=== PATIENT | female | born 1930 | race Caucasian/White ===

== ENCOUNTER 2020-10-08 07:05 | Observation (INO) | payer MEDICARE, BC ==
[~2020-10-08] VITALS: Ht 167.6 cm; Wt 87.3 kg
[~2020-10-08 07:05] MED LIST: METOPROLOL SUCC25 MG PO; VITAMIN D350 MC3 PO
--- NOTE | 2020-10-08 11:28 | NUR ---
10/08/20 1128 Josy Levy 1124 PATIENT ARRIVES TO PACU UNRESPONSIVE TO PAIN. ORAL AIRWAY IN PLACE. MASK AT 6LITERS.
--- NOTE | 2020-10-08 12:00 | NUR ---
PT ARRIVED FROM PACU. REPORT RECEIVED FROM ALEXANDREA MATHUR. PT TRANSFERES SELF TO BED, 1 PERSON STAND BY ASSIST. PT DENIES PAIN AND NAUSEA. PTS O2 SATRUATIONS NOTED TO BE 89%. PT PLACED ON 2L O2 BY DE, OXYGEN SATURATIONS CLIMB TO 95% AND MAINTAIN WITH SLEEPING. OTHER VITALS SIGNS STABLE. SCD'S IN PLACE. PT PLACED ON CONTINIOUS PULSE OX. IV FLUSHES WELL, NO REDNESS, SWELLING, OR PAIN NOTED. IV FLUIDS STARTED PER MD ORDER. ASSESSMENT DONE: NORMAL STRENGTH NOTED. PT DROWSY BUT ORIENTED TO ALL. PT REPORTS "A HORSE VOICE." EDUCATION DONE WITH PT REGADING ET TUBE PLACEMENT IN OR AND EXPECTED RECOVERY TIME. PT VERBALIZES UNDERSTANDING. DRESSING TO RIGHT BREAST C/D/I AT THIS TIME WITH NO DRAINGE NOTED. 30ML RED DRAINAGE NOTED IN MARLON DRAIN. MARLON DRAIN STRIPPED PER MD ORDER. MARLON INCERTION SITE, WNL, NO DRAINAGE NOTED. KAREEN, DOOR LINER HELPER, STATES DRAIN WAS EMPTY WHEN PT LEFT PACU. WILL CONTINUE TO MONITOR. PT REPORTS SHE RECEIVED HELP FROM HER GRANDDAUGHTER "ROSAS" AT HOME FOR GETTING GROCERIES BUT IS OTHERWISE INDEPENDANT AT HOME. PT ABLE TO DRINK WATER WITH NO NASUEA. DECLINES FOOD AT THIS TIME. NO ADDITIONAL REQUESTS OR COMPLAINTS AT THIS TIME. CALL LIGHT WITHIN REACH. BED RAILS UP.
--- NOTE | 2020-10-08 12:09 | EKG ---
[facility] [address] [facility] [place] [address] Signed Sinus bradycardia Left ventricular hypertrophy with repolarization abnormality Abnormal ECG No previous ECGs available Confirmed by CASIE GARZA MD ([id number]) on 10/08/2020 12:09:43 PM Electronically Signed By: CASIE GARZA MD 10/08/20 1209 PATIENT NAME: THELMA BUTTS Electrocardiogram DATE OF : [birth year] PHYSICIAN: CASIE GARZA MD REPORT #: [id number] REPORT IS CONFIDENTIAL AND NOT TO BE RELEASED WITHOUT AUTHORIZATION
--- NOTE | 2020-10-08 12:39 | NUR ---
DORA ORNELAS CONTACTED PER DR VALDERRAMA'S ORDER TO FIT PATIENT FOR CAMIZOLE AND EDUCATE PT. DORA STATES SHE WILL BE UP SHORTLY TO VISIT WITH PT.
--- NOTE | 2020-10-08 12:46 | NUR ---
THIS RN TO ROOM FOR VITALS AND ASSESSMENT. PT RESTING IN BED WITH EYES CLOSED. PT AWAKENS TO MOVEMENT IN ROOM. VITAL SIGNS STABLE. PT WEANED TO 1L O2 BY NC AND IS MAINTING OXYGEN SATURATION ABOVE 92% WHILE RESTING. ASSESSMENT DONE: DRESSING TO RIGHT BREAST REMAINS C/D/I WITH NO DRAINAGE OR SHADOWING NOTED. MARLON SAMIRA SHOWS SMALL AMOUNT OF RED FLUID, NOT EMPTIED AT THIS TIME. DRAIN STRIPPED PER MD ORDER. EDUCATION DONE WITH PT REGARDING MARLON DRAIN AND HOW IT IS EMPTIED AND STRIPPED. PT VERBLAIZES UNDERSTANDING. WILL CONTINUE TO REENFORCE EDUCATION. DORA, BREAST CARE/HEALTH, TO BEDSIDE TO MEET WITH PT. PT TALKING TO DORA. NO ADDITIONAL REQUESTS OR COMPLAINTS. PTS GRANDDAUGHTER BROOK LEAVING FOR THE DAY. CALL LIGHT WITHIN REACH. BED RAILS UP. BED ALARM ON.
--- NOTE | 2020-10-08 13:55 | NUR ---
VITALS AND ASSESSMENT DUE. THIS RN TO BEDSIDE. PT STILL TALKING WITH DORA FROM BREAST CARE/HEALTH. PT HAS CAMISOL IN PLACE OVER SURGICAL SITE. VITAL SIGNS STABLE. PT WEANED TO ROOM AIR, PT MAINTAINS FOR A SHORT TIME AND THEN DROPS TO 88%. PT PLACED BACK ON 1 L O2 BY LA. ASSESSMENT DONE: PT CONTINUES TO REPORTS "SCRATCHY THROAT." FURTHER EDUCATION DONE/REINFORCED. DRESSING REMAINS C/D/I WITH NO DRAINAGE OR SHADOWING NOTED. MARLON DRAIN CONTINUES DRAINING RED FLUID, ADDITONAL 45ML REMOVED FROM MARLON BULB, WILL CONTINUE TO MONITOR. PT CONTINUES TO DENY PAIN AND NAUSEA. SCHEDULED TYLENOL GIVEN PER MD ORDER. EDUCATION DONE WITH PT REGARDING EXPECTED LEVEL OF PAIN. PT VERBALIZES UNDERSTANDING AND STATES SHE WILL CALL IF PAIN INCREASES. PT UP WITH ONE PERSON ASSIST TO RESTROOM. PT HAS VOIDED, INCONTINANT, INTO DEPENDS. KALINA CARE DONE. DEPENDS CHANGED. PTS DRESSED IN PAJAMAS FROM HOME PER PT REQUEST. MEDICATIONS GIVEN (SEE MAR). CRACKERS PROVIDED PER PT REQUEST. PT REPORTS SHE IS "STARTING TO FEEL HUNGERY." PT BACK TO BED WITH 1 PERSON ASSIST. PT REPORTS FEELING STEADY ON FEET "BUT A LITTLE WEAK." PT RESTING IN BED. BED RAILS UP. CALL LIGHT WITHIN REACH. BED ALARM ON.
--- NOTE | 2020-10-08 14:33 | NUR ---
SPECIAL DELIVERY CARRIERALEXANDREA AVERY REQUESTED I LET PT REST AT THIS TIME. WILL FOLLOW NEEDED
--- NOTE | 2020-10-08 15:13 | NUR ---
ASSESSMENT AND VITALS DUE. PT RESTING IN BED ON BACK WITH HEAD OF BED ELEVATED TO 30 DEGREES. PT DENIES PAIN AND NAUSEA AND HAS FINISHED EATING TOAST AND A BOWL OF SOUP. ROOM AIR TRIAL ATTEMPTED. PT REMAINS AT 90-92% ON ROOM AIR. PT REMAINS ON 1L AT THIS TIME FOR EXTRA SUPPORT. PT TURNS TO 95% ON 1L O2 BY NC. ASSESSMENT DONE: SCD'S IN PLACE. LUNG SOUNDS CLEAR. DRESSING TO RIGHT BREAST NOW 1.5CM CIRCUMFERENCE SHADOWING NOTED ON MEDIAL END OF DRESSING. 45 ML RED DRAINAGE NOTED FROM MARLON DRAIN. CHARGE NURSE, BENNIE, UPDATED ON DRAIN CONDITION, WILL CONTINUE TO MONITOR. PT CONTINUES WEARNING TOP PROVIDED BY DORA FROM [employer]. DINNER AND BREAKFAST ORDER PLACED FOR PT. PT CONTINUES RESTING IN BED WITH HEAD OF BED ELEVATED TO 30 DEGREES. NO ADDIITONAL REQUESTS OR COMPLAINTS. CALL LIGHT BRONSON REACH. BED ALARM ON.
[2020-10-08] MEDS ORDERED: I-CAPS WITH LU1 EACH PO (15:18)
--- NOTE | 2020-10-08 15:18 | NUR ---
MED REC COMPLETE
--- NOTE | 2020-10-08 16:53 | NUR ---
THIS RN TO ROOM TO CHECK ON PT. PT DENIES NASUEA AND REPORTS "JUST A LITTLE SOMETHING" POINTING TO SURGICAL SITE. PT DOES NOT RATE PAIN AT THIS TIME STATING "IT JUST LIKE HAVING SOMETHING STICKING IN ME THAT SHOULDN'T BE THERE." PT DENIES NEED FOR PAIN MEDICATION AT THIS TIME. MARLON DRAIN NOTED TO HAVE SMALL AMOUNT OF RED DRAINAGE. DRESSING TO RIGHT BREAST REMAINS UNCHANGED WITH SMALL AMOUNT OF RED SHADOWING NOTED NEAR MEDIAL END OF DRESSING. PT REMAINS ON 2L O2 BY IL WITH OXYGEN SATURATION OF 93%. PT ANTICIPATING DINNER. NO ADDITIONAL REQUESTS OR COMPLAINTS AT THIS TIME. CALL LIGHT WITHIN REACH. BED ALARM ON.
--- NOTE | 2020-10-08 17:44 | NUR ---
PT POST OP DAY ZERO FOR RIGHT MASTECTOMY. PT UP TO RESTROOM WITH 1 PERSON ASSIST, INCONTINANT VOIDS NOTED PER PT BASELINE. PT TOLERATING REGULAR DIET WITH GOOD APPITITE AND NO NAUSEA. PT REPORTING NO PAIN SO FAR THIS SHIFT. PT EDUCATION DONE REGARDING PAIN EXPECTATIONS AND AVALIABLE MEDICATIONS. SUTRES ADN ACTICOAT DRESSING INTACT OVER RIGHT BREAST SURGICAL SITE WITH SMALL AMOUNT OF RED SHADOWING NOTED TO MEDIAL END OF DRESSING. MARLON DRAIN HAD 120ML RED OUTPU SO FAR THIS SHIFT. PT REMAINS ON 1L O2 BY NC WITH CONTINIOUS PULSE OX IN PLACE, MAINTAINING O2 ABOVE 92% WITH 1L O2 BY NC. SCD'S IN PLACE. PT USES CALL LIGHT APPROPRIALTY.
--- NOTE | 2020-10-08 18:29 | NUR ---
THIS RN TO ROOM TO CHECK ON PT. PT DENIES PAIN AND NAUSEA. PT REPORTS "DINNER WAS REALLY GOOD." PT REMAINS ON 1L O2 BY NC WITH OXYGEN SATURATION AT 94%. MARLON DRAIN EMPTIED OF 10ML RED DRAINAGE. DRAIN STRIPPED PER MD ORDER. PT DENIES ADDITIONAL REQUESTS OR COMPLAINTS. CALL LIGHT WITHIN REACH. BED RAILS UP.
--- NOTE | 2020-10-08 19:16 | NUR ---
BEDSIDE REPORT RECEIVED FROM ALEXANDREA CANTU. SBA TO RESTROOM FOR VOID. DEVIKA KWON NOW IN ROOM ASSISTING pt. 1L OXYGEN BY NC IN PLACE, SPO2 91-94%. pt DENIES PAIN.
--- NOTE | 2020-10-08 20:35 | NUR ---
CALL LIGHT ANSWERED. LIGHTS OFF IN ROOM REQUESTED. pt REQUESTING TO NAP BEFORE PM MEDICATIONS.
--- NOTE | 2020-10-08 22:00 | NUR ---
pt SLEEPING, AWAKENS TO VOICE. VSS. pt DENIES TOILETING NEEDS. EDUCATION PROVIDED ON MARLON DRAIN EMPTYING, pt ASKING QUESTIONS, DEMONSTRATING USE CLOSING BULB AFTER RN DEMONSTRATES MILKING TUBING, EMPTYING BULB. pt STATES "I THINK MY GRANDDAUGHTER COULD HELP ME DO THIS". 40 MLS RED DRAINAGE EMPTIED AT THIS TIME. SMALL QUARTER SIZE CLOT NOTED ON DRESSING. pt DENIES PAIN. SCHEDULED MEDICATIONS ADMINISTERED. ORAL CARE COMPLETE. pt REQUESTING POST MASTECTOMY BRA REMOVED, REMOVED AT THIS TIME REQUESTED. MARLON DRAIN SECURED TO GOWN WITH SAFETY PIN. ATTEMPT TO TITRATE O2 TO RA, SPO2 DROPS TO 89%, 1L OXYGEN BY NC REMAINS IN PLACE. CALL LIGHT IN REACH. BED ALARM ON.
--- NOTE | 2020-10-09 00:44 | NUR ---
CHECKED ON pt. RESTING IN BED WITH EYES CLOSED. SPO2 94% ON 1L OXYGEN BY NC. BED ALARM ON.
--- NOTE | 2020-10-09 02:10 | NUR ---
PT CALLED, STATED SHE LOST "SOMETHING OUT OF MY NOSE". FOUND O2 TUBING ON THE FLOOR. SHE STATED THAT SHE WAS TURNING OVER IN BED, REALIZED IT WAS MISSING. SHE WANTED TO KNOW WHAT THAT "NOISE IS". LOUDER NOISE EXPLAINED TO HER WAS THE FAN. SHE SAID SHE WONDERED WHY THE TRAIN HAD STOPPED, SAID IT SOUNDED LIKE A TRAIN. OFFERED EAR PLUGS, WHICH SHE HAD, BUT SHE SAID THEY DON'T WORK. SCD'S ADJUSTED.
--- NOTE | 2020-10-09 02:22 | NUR ---
CALL LIGHT ANSWERED BY ALEXANDREA MARQUEZ, pt STATES "I LOST SOMETHING OUT OF MY NOSE". ALERT AND ORIENTED. SPO2 WNL ON 1L OXYGEN BY NC. DRAINAGE ON DRESSING UNCHANGED FROM START OF SHIFT. pt DENIES ANY PAIN STATES THE ONLY THING THAT HURTS WITH MOVEMENT IS WHERE THE MARLON IS INSERTED. MARLON EMPTIED 40 MLS SANGUINOUS FLUID. pt DENIES NEED FOR PRN MEDICATION. DENIES NEED TO VOID. IVF INFUSING ORDERED WNL. HOT APPLE CIDER PROVIDED REQUESTED. CALL LIGHT IN REACH. BED ALARM ON.
--- NOTE | 2020-10-09 05:37 | NUR ---
CALL LIGHT ANSWERED. SBA TO RESTROOM. UNMEASURED VOID IN TOILET AND LARGE INCONTINENCE IN ATTENDS, KALINA PAD. LINENS CHANGED ON BED. pt INDEPENDENT TO CLEAN WITH WIPES IN RESTROOM. BACK IN BED. VSS. TITRATED TO RA, SPO2 96%. ICE WATER AND HOT APPLE CIDER PROVIDED. MARLON DRAIN EMPTIED 25 MLS SANGUINOUS FLUID. pt REFUSING TO EMPTY DRAIN AT THIS TIME, WATCHES RN. STATES "I WILL HAVE MY GRANDDAUGHTER DO IT". CALL LIGHT IN REACH.
--- NOTE | 2020-10-09 05:40 | NUR ---
pt RESTED WELL THIS SHIFT. MINIMAL PAIN, ONLY C/O "FEELING LIKE SOMETHING IS THERE LIKE A WIRE IN BRA AT MARLON INSERTION SITE". PAIN WELL CONTROLLED WITH SCHEDULED TYLENOL. TITRATED TO RA, CPOX IN PLACE. DRAINAGE ON DRESSING UNCHANGED THROUGHOUT SHIFT, SMALL SANGUINOUS SPOT ON DRESSING. MARLON DRAIN WITH 105 MLS SANGUINOUS FLUID FOR SHIFT. IVF INFUSING WNL THROUGHOUT SHIFT. TOLERATING REGULAR DIET. SBA.
--- NOTE | 2020-10-09 06:13 | NUR ---
REVISING CLERK IS DONE DRAWING BLOOD ON PT. RESTARTED IV PUMP. PT DENIES NEEDS AT THIS TIME. CALL LIGHT IS CLOSE.
--- NOTE | 2020-10-09 07:15 | NUR ---
REPORT RECEIVED FROM ALEXANDREA GREEN. PT RESTING IN BED ON BACK. PT REPORTS "NO PAIN AT ALL REALLY." DESCRIBING ONLY A DISCOMFORT "LIKE I'M WEARING A BRA WITH METAL IN IT AND ITS POKING ME." PT DENIES NEED FOR PAIN MEDICATION AT THIS TIME. NO ADDITIONAL REQUESTS OR COMPLAINTS. CALL EILEEN NAVARRO.
--- NOTE | 2020-10-09 09:18 | NUR ---
MORNING ASSESSMENT AND MEDICATION DUE. PT RESTING IN BED TALKING WITH ARIEL NEFF RN. PT DENIES PAIN AND NAUSEA STATING HER ONLY COMPLAINT IS "IT FEELS LIKE I'M WEARING A METAL BRA WHERE THAT DRAIN IS." PT STATES 0/10 WHEN ASKED TO RATE HER DISCOMFORT. PT DENIES NEED FOR PAIN MEDICATION. IV, WNL, NO REDNESS, SWELLING, OR PAIN NOTED. IV FLUIDS INFUSING. PT NOTED TO BE OFF OF CONTINIOUS PULSE OX. CONTINIOUS PULSE OX REPLACED PER POST OP PROTOCOL. O2 NOTED TO BE 92% ON ROOM AIR. LUNG SOUNDS CLEAR. PT REPORTS HER LEGS FEEL SWOLLEN, MINOR GENERALIZED EDMA NOTED. PT EDUCATION DONE REGARDIN POST OP FLUID BALANCE. PT VERBALZIES UNDERSTANDING. PT UP TO CHAIR WITH STAND BY ASSIST. DEPENDS DRY. PT DECLINES OXYBUTYN MEDICAITON STATING SHE IS WORRIED ABOUT GETTING DEMENTIA. EDUCATION DONE, PT CONTINUES TO DECLINE. SUGICAL DRESSING REMAINS INTACT. 2CM BY 2CM RED SHADOWING NOTED AT MEDIAL END OF DRESSING. 30ML SERIOUSANGUINOUS DRAINAGE EMPITED IN MARLON DRAIN BY PT WITH ASSISTANCE FROM THIS RN. PT RELUCTANT TO EMPTY MARLON DRAIN ALONE AND STATES HER FAMILY WILL BE HELPING HER. PT EDUCATION DONE. PT DEMONSTRATES CORRECT TECHNIQUE WITH ASSISTANCE FROM THIS RN. PT REPORTS SHE DID NOT LIKE HER FIRST BREAKFAST. NEW BREAKFAST ORDER ARRIVED. PT EATING BREAKFAST UP TO CHAIR. DENIES ADDIITONAL REQUESTS OR COMPLAINTS. CALL EILEEN NAVARRO.
--- NOTE | 2020-10-09 09:30 | NUR ---
Met with patient this morning, the patient is very happy with her care on the medical floor, states that the nurses are very attentative to her, stating that "they are wonderful". Patient desires to return home and has no concerns with returning home, states her granddaughter is close by, and very helpful.
--- NOTE | 2020-10-09 10:15 | NUR ---
Pt lives in [place] in 2 story home with rails. No steps into the home. Niece lives around the corner and checks on her daily. Son calls daily. Niece will assist as needed. Pt plans on going home with assist from nephew and niece. Pt refused camisole from [facility] for support following surgery.
--- NOTE | 2020-10-09 10:34 | NUR ---
THIS RN TO ROOM TO CHECK ON PT. PT REAMINS UP TO CHAIR TALKING WITH ARIEL NEFF. NEW IV FLUID BAG HUNG. VITAL SIGNS STABLE. PT FINISHED WITH BREAKFAST AND REPORTS HER SECOND BREAKFAST WAS "VERY GOOD." NO ADDTIONAL REQUESTS OR COMPLAINTS AT THIS TIME. CALL LIGHT WITHIN REACH.
--- NOTE | 2020-10-09 10:40 | NUR ---
PATIENT AWAKE IN CHAIR, VITALS AND I&OS CHARTED. CALL LIGHT IN REACH, NO OTHER NEEDS AT THIS TIME
--- NOTE | 2020-10-09 11:38 | NUR ---
In room responding to CPOX alarm. Pts CPOX was alarming and when I entered the room her o2sat read 87%. Within moments the CPOX read 94% and maintained >94% for two mins. Pt alert, oriented, and holding full conversation without difficulty. Pt in chair, table and call light within reach, granddaughter at chair side.
--- NOTE | 2020-10-09 11:52 | NUR ---
NOON ASSESSMENT DUE. PT UP TO CHAIR TALKING WITH GRAND DAUGHTER ROSAS. PT DENIES PAIN AND NAUSEA. O2 SATURATION AT 98% ON ROOM AIR. HEART RATE OF 62. PT UP TO RESTROOM WITH STAND BY ASSIST. INCONTINANT EPISODE NOTED. KALINA CARE DONE. FRESH DEPENDS IN PLACE. MARLON DRAIN EMPTIED BY ROSAS, PTS GRANDDAUGHTER, WHO DEMONSTRATES CORRECT TECHNIQUE. 20ML SERIOUSANGUINOUS FLUID NOTED FROM MARLON DRAIN. DRESSING TO RIGHT BREAST REMAINS INTACT WITH NO NEW SHADOWING NOTED, 2CM CIRCUMFRENTIAL SHADOWING AT MEDIAL END OF DRESSING REMAINS. PT EDUCAITON DONE REGARDING DRAIN AND WOUND HOME CARE AND SHOWERING. PT AND GRANDDAUGHTER VERBALIZE UNDERSTANDING. PT CONTINUES TO REPORT SWELLING IN LOWER LEGS, MINOR GENERALIZED SWELLING NOTED. PT REPORTS SHE IS READY TO GO HOME AND WONDERS WHEN SHE WILL HAVE DISCHARGE INSTRUCTIONS. PT UPDATED ON PLAN OF CARE. NO ADDITIONAL REQUESTS OR COMPLAINTS. LUNCH ORDER PLACED. PT VISITING WITH GRANDDAUGHTER. CALL LIGHT WITHIN REACH.
[2020-10-09] MEDS ORDERED: ACETAMINOPHEN500 MG PO (13:38)
--- NOTE | 2020-10-09 13:49 | NUR ---
PATIENT AWAKE IN CHAIR, FAMILY IN ROOM. VITALS AND I&OS CHARTED, NO OTHER NEEDS AT THIS TIME
--- NOTE | 2020-10-09 14:04 | NUR ---
THIS RN TO ROOM TO CHECK ON PT. MEDICATION DUE. PT DENIES PAIN AND NAUSEA. SCHEDULED MEDICATION GIVEN. IV FLUIDS STOPPED. IV SALINE LOCKED SO PT CAN GET DRESSED. PULSE OX CONTINUES TO SHOW O2 SATURATION OF 92-98 % ON ROOM AIR. HOSPICE MASSAGE THERAPIST TO BEDSIDE TO HELP PT GET DRESSED. PT DENIES ADDITIONAL REQUESTS OR COMPLAINTS. CALL LIGHT WITHIN REACH.
--- NOTE | 2020-10-09 14:50 | NUR ---
DISCHARGE PAPERWORK COMPLETE. PT READY FOR DISCHARGE. PT DRESSED WITH 1 PERSON ASSIST. KALINA CARE DONE. DEPENDS CHANGED. PHARMACIST TO BEDSIDE FOR MEDICAITON REVEIWED. PT AND GRANDDAUGHTER VERBALIZE UNDERSTANDING OF MEDICAITONS AND STATE THEIR QUESTIONS HAVE BEEN ANSWERED. IV DC'D BY ALEXANDREA SAM. VITAL SIGNS STABLE. DISCHARGE INSTRUCTIONS REVEIWED WITH PT AND GRANDDAUGHTER. PT AND GRANDDAUGHTER VERBALIZE UNDERSTANDING OF INSTRUCTIONS, DRAIN CARE, FOLLOW UP, MEDICATIONS AND STATE THEIR QUESTIONS HAVE BEEN ANSWERED. PT TANSFERES SELF TO WHEELCHAIR. PT WHEELED FROM MED/SURG WITH BELONGINGS TO MEET ROSAS (GRANDDAUGHTER) AT FRONT OF HOSPITAL.
--- NOTE | 2020-10-13 15:46 | OR ---
[facility] [address], [place] [address] Signed DATE OF OPERATION: 10/08/2020 SURGEON: Jen Valderrama MD PREOPERATIVE DIAGNOSES: 1. 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 2. Probable similar lesion at 1 o'clock separate quadrant, right breast. POSTOPERATIVE DIAGNOSES: 1. 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 2. Probable similar lesion at 1 o'clock separate quadrant, right breast. 3. Frozen pathology of sentinel lymph node negative for metastatic disease, right low axilla. PROCEDURES: 1. Injection of methylene blue dye for sentinel lymph node identification. 2. Right total mastectomy with low axillary lymph node dissection. 3. Deep sentinel lymph node biopsy .. ANESTHESIA: General LMA, Vini Brigitte, X RAY TECH DRAINS: 7 mm Juan. ESTIMATED BLOOD LOSS: Less than 50 mL. INDICATIONS: This 89-year-old white woman is a patient of Dr. Umair Childs. She was noted to have a palpable mass at the 10 o'clock position in relation to her right nipple. Imaging studies including mammogram and ultrasound showed BI-RADS category 5 lesion of the right breast and the lesion that was smaller quite a bit more medially in the right breast at least 10 cm from the areolar margin. She underwent image-guided biopsy by ar, which showed infiltrating ductal carcinoma of the lesion near the nipple. The lesion more medially was not biopsied. The patient at the outset has stated her intention for her breast cancer treatment to include mastectomy rather than breast conservation therapy. Considering the high probability that the medial lesion is malignant as well and would be considered a Electronically Signed By: JEN VALDERRAMA MD 10/13/20 1546 PATIENT NAME: THELMA BUTTS OPERATIVE REPORT DATE OF : [birth year] REPORT #: [id number] PHYSICIAN: JEN VALDERRAMA MD PCP: UMAIR CHILDS MD REPORT IS CONFIDENTIAL AND NOT TO BE RELEASED WITHOUT AUTHORIZATION [facility] [address], [place] [address] Signed multi-centric lesion (separate quadrant), mastectomy is a reasonable choice for treatment. The risks of bleeding, infection, cosmetic deformity, need for additional treatment, need for complete axillary dissection should sentinel lymph node prove to be malignant was all reviewed with the patient and family, they understand and wished to proceed. FINDINGS: There was good uptake to a low axillary lymph node, which once excised on frozen pathology was found to show no evidence of metastatic disease. The breast was rather large and broad-based. Complete and total mastectomy was accomplished as well as excision of low axillary contents. Formal high axillary dissection (level 3) was not undertaken as the sentinel lymph node was found to be benign. The palpable lesion previously biopsied was well incorporated within the specimen and the more medial lesion was not particularly identified nor dissection taken through the breast specimen to identify it. That will await final pathology of course. There is no evidence of direct penetration in the pectoralis fascia. No other findings of concern. DESCRIPTION OF PROCEDURE: The patient was brought to the operating room, given a general anesthetic by LMA technique. Preoperative antibiotic Ancef was given. Sequential compression device stockings used and heparin subcutaneously administered. A full 3 mL of methylene blue dye was injected in the subdermal and parenchymal space in the 10 o'clock position of the right breast. Arborization of lymphatics was noted. The breast was then prepared with a chlorhexidine solution and draped sterilely. An elliptical incision was made incorporating the nipple-areolar complex and superior and inferior flaps developed with sharp technique. The breast was dissected from a superior to inferior direction using minimal amounts of cautery, freeing it entirely from the pectoralis fascia. The remaining axillary tail of Valadez and the contiguous axillary contents were carefully evaluated and dissected free. The upper axilla had no palpable adenopathy. The low axilla was with a hemostat device following a lymphatic from the injection site ultimately to a sentinel lymph node in the low to mid axilla. This was dissected free and sent as sentinel lymph node. She was subsequently found to have no evidence of metastatic disease. Excision of the breast included all the breasts, axillary tail of Valadez, and the lower portion of the axillary contents. A complete level three axillary dissection was not performed nor was it needed based on the pathologic findings. Through a separate stab incision, a 7 mm flat Juan drain was placed extending superiorly with the tip ultimately entering into the mid axilla. The wound was then closed with interrupted 2-0 Vicryl and a running subcuticular 3-0 Vicryl was used for the skin. Notably, irrigation of the wound and axilla was undertaken with sterile water for its tumor lytic effect and for assistance in hemostasis. Once the skin was closed, Steri-Strips were applied as was a silver sponge dressing. The drain was attached to the skin with a nylon suture and attached to bulb suction. Blood loss in aggregate was Electronically Signed By: JEN VALDERRAMA MD 10/13/20 1546 PATIENT NAME: THELMA BUTTS OPERATIVE REPORT DATE OF : [birth year] REPORT #: [id number] PHYSICIAN: JEN VALDERRAMA MD PCP: UMAIR CHILDS MD REPORT IS CONFIDENTIAL AND NOT TO BE RELEASED WITHOUT AUTHORIZATION [facility] [address] [place] [address] Signed less than 50 mL. She was ultimately extubated and transferred to the recovery room in good condition, having suffered no complications. Sponge, needle, and instrument counts reported as correct x3. Jen Valderrama MD /DEWAYNEL /[id number] cc: Umair Childs MD Copies: UMAIR CHILDS MD ~ Electronically Signed By: JEN VALDERRAMA MD 10/13/20 1546 PATIENT NAME: THELMA BUTTS OPERATIVE REPORT DATE OF : [birth year] REPORT #: [id number] PHYSICIAN: JEN VALDERRAMA MD PCP: UMAIR CHILDS MD REPORT IS CONFIDENTIAL AND NOT TO BE RELEASED WITHOUT AUTHORIZATION
--- NOTE | 2020-10-15 16:33 | PATH ---
[facility] [address] [facility] [place], [place] [address] Signed THIS IS AN ADDENDUM REPORT SPECIMEN(S): B RIGHT BREAST SPECIMEN(S): A SENTINEL LYMPH NODE OF RIGHT AXILLA SPECIMEN SOURCE: A. SENTINEL LYMPH NODE OF RIGHT AXILLA B. RIGHT BREAST CLINICAL HISTORY: Right breast cancer: Specimen Time to Fixation- 10/08/2020 10:52:00 AM FROZEN SECTION DIAGNOSIS: A. Morland lymph node right axilla: - No evidence of malignancy in dermatology sales representative section frozen. Nighat Day M.D. 10/08/2020 11:40 am B. The specimen, labeled "Severe, Thelma," and designated on the requisition "right breast stitch lane portion of axillary contents," is received in formalin and consists of 701 g oriented right breast (18.0 x 14.8 x 5.4 cm) with axillary tail (10.5 x 7.5 x 3.6 cm). The ellipse of skin (17.8 x 16.1 cm) is pink-vera and wrinkled with an eccentrically located everted. Adjacent to the nipple is a blue dye discoloration. The specimen is inked as follows: Superior-blue, inferior-green, and posterior-black. The specimen serially sectioned from medial to lateral revealing two separate masses. The first pink, ill-defined mass (1.7 x 1.7 x 1.4 cm) is centrally located within the superior half of the breast, 6.5 cm superior to the nipple, 2.3 cm from the anterior skin, 6.3 cm from the posterior soft tissue resection margin, 4.1 cm in the superior soft tissue resection margin, 7.9 cm from the inferior soft tissue resection margin, 4.8 cm from the medial soft tissue resection margin, and 6.3 cm from the lateral soft tissue resection margin. Approximately 1 cm superior to the first mass is a 0.5 x 0.4 x 0.3 cm firm nodule. The second pink-white, ill-defined mass (1.4 x 0.9 x 0.7 cm) is a 2.6 cm lateral to the first mass. The second mass is 2.4 cm from the anterior skin, 5.4 cm from the posterior soft tissue resection margin, 0.9 cm from the superior soft tissue resection margin, 10.3 cm from the inferior soft tissue resection margin, 9.5 cm from the medial soft tissue resection margin, and 4.3 cm from the lateral PATIENT NAME: THELMA BUTTS PATHOLOGY DATE OF : [birth year] REPORT #: [id number] PHYSICIAN: ERMA PATHOLOGY PCP: UMAIR PERSON MD REPORT IS CONFIDENTIAL AND NOT TO BE RELEASED WITHOUT AUTHORIZATION [address] [address] Signed soft tissue resection margin. Approximately 80% of the remaining specimen is a yellow-vera greasy adipose tissue and 20% is a delicate fibrous tissue. Upon palpation of the upper inner quadrant no mass lesions are grossly identified. Sectioning through the axillary tail reveals eight possible lymph nodes that measure up to 1.4 cm in greatest dimension. Eye Surgeon sections are submitted in 24 cassettes. Cassette summary: (B1) nipple and skin (B2) posterior soft tissue resection margin closest to first mass, perpendicular (B3) superior soft tissue resection margin closest to first mass, perpendicular (B4-B5) first mass to adjacent fibroadipose tissue (B6) fibroadipose tissue between first and second masses (B7-B8) second mass to superior soft tissue resection margin, perpendicular (B9) posterior soft tissue resection margin closest to second mass, perpendicular (B10) fibroadipose tissue upper inner quadrant (B11) fibroadipose tissue upper outer quadrant (B12) fibroadipose tissue lower outer quadrant (B13) fibroadipose tissue lower inner quadrant (B14) one possible lymph node, serially sectioned (B15) one possible lymph node, serially sectioned (B16) one possible lymph node, bisected (B17) two possible lymph nodes, submitted whole (B18) one possible lymph node, bisected (B19) one possible lymph node, serially sectioned (B20) one possible lymph node, submitted whole (B21) first mass to adjacent nodule (yellowing ink identifying nodule, not true margin) (B22-B24) fibroadipose tissue from upper inner quadrant (approximately 5 cm from mass #1 at the 1 o'clock position) (B25) Fibroadipose tissue abutting mass #1 (B26) Fibroadipose tissue between masses, between mass 2 and B6. FB (under the direct supervision of a pathologist) Additional tissue is submitted in cassettes B21-B26 per Dr. Day's request. The Gross Description was prepared using a voice recognition system. The report was reviewed for accuracy; however, sound-alike word errors, addition and/or deletions may occur. If there is any question about this report, please contact Client Services. PATIENT NAME: THELMA BUTTS PATHOLOGY DATE OF : [birth year] REPORT #: [id number] PHYSICIAN: INCYTE PATHOLOGY PCP: UMAIR PERSON MD REPORT IS CONFIDENTIAL AND NOT TO BE RELEASED WITHOUT AUTHORIZATION [facility] [address] [place], [place] [address] Signed FINAL PATHOLOGIC DIAGNOSIS: A. 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 - See comment. B. Breast and portion of axillary contents, right, total mastectomy: - Two foci of invasive ductal carcinoma with the following features: - Tumor sites: - Focus 1: Superior periareolar. - Focus 2: Upper outer quadrant, see Comment. - Tumor size: - Focus 1: 17 x 17 x 14 mm. - Focus 2: 9 mm in greatest dimension (measured microscopically). - Histologic type: - Focus 1: Invasive ductal carcinoma with micropapillary features. - Focus 2: Invasive ductal carcinoma. - Histologic grade ([place] histologic score): - Glandular (acinar)/tubular differentiation: Score 3. - Nuclear pleomorphism: Score 2. - Mitotic rate: Score 1. - Overall grade: Grade 2 (total score 6 of 9). - Tumor focality: Two foci of invasive carcinoma. 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 - Architectural patterns: Solid and cribriform. - Nuclear grade: Grade 2 (intermediate). - Necrosis: Present, central (expansive "comedo" necrosis). - Margins: - Invasive carcinoma margins: Uninvolved by invasive carcinoma: - Superior margin: 9 mm. - Inferior, posterior, medial, and lateral: Greater than 10 mm. - DCIS margins: Uninvolved by DCIS. - Superior, inferior, posterior, medial, and lateral: Greater than 10 mm. - Regional lymph nodes: Involved by tumor cells. - Number of lymph nodes with macrometastasis: 0 - Number of lymph nodes with micrometastasis: ----1 (see part A) - Number of lymph node with isolated tumor cells: 0 - Size of largest metastatic deposit: 1 mm. PATIENT NAME: THELMA BUTTS PATHOLOGY DATE OF : [birth year] REPORT #: [id number] PHYSICIAN: ERMA BEVERLY PCP: UMAIR PERSON MD REPORT IS CONFIDENTIAL AND NOT TO BE RELEASED WITHOUT AUTHORIZATION [facility] [address] [place], [place] [address] Signed - Extra natalie extension: Not identified. - Total number of lymph nodes examined: 9 - Number of sentinel nodes examined: 1. - Treatment effect in the breast: No known pre-surgical therapy. - Lymphovascular invasion: Not identified. - Dermal lymphovascular invasion: Not identified. - Microcalcifications: Present in DCIS and invasive carcinoma. - Additional findings: Biopsy site changes in carcinoma focus #1, fibrocystic changes. - Breast biomarker testing: Refer to previously performed studies ([id number]) on the periareolar breast mass, reported as estrogen receptor positive, progesterone receptor positive, HER2 negative by IHC, and Ki-67 proliferating index of 3%. - Pathologic stage classification (pTNM, AJCC 8th ed.): mpT1c (sn)pN1mi. - Eight lymph nodes with no evidence of malignancy (0/8). COMMENT: Regarding specimen A: Micrometastatic carcinoma is present in the sections of sentinel lymph node not submitted for frozen section. Regarding specimen B: Two foci of invasive carcinoma are present. Focus #1 is periareolar and has gross and histologic biopsy site changes. This focus #1 is compatible with the previously biopsied tumor which was tested for biomarkers. Of note, a biopsy marker clip was not placed post biopsy. Focus #2 grossly is located laterally to Focus #1. Per mammogram report 09/23/20, a second spiculated mass was reportedly present at approximately the 1:00 position, 5 cm from the periareolar spiculated mass. The 1:00 region, 5 cm from carcinoma focus #1 was extensively examined and sampled and no lesion or carcinoma was identified. The discordant gross location of carcinoma focus #2 could be due to orientational change of the breast status post surgical excision. Breast biomarker studies will be ordered on the second focus of carcinoma and reported in an addendum. As part of [employer] Quality Improvement Program, this case was reviewed by another member of our pathology staff. NAL:cml:C1NR MICROSCOPIC EXAMINATION: Histologic sections of all submitted blocks are examined by light microscopy. A pancytokeratin (AE1/AE3) immunohistochecmial stain (with appropriately staining PATIENT NAME: THELMA BUTTS PATHOLOGY DATE OF : [birth year] REPORT #: [id number] PHYSICIAN: ERMA PATHOLOGY PCP: UMAIR PERSON MD REPORT IS CONFIDENTIAL AND NOT TO BE RELEASED WITHOUT AUTHORIZATION [address] [address] Signed controls) performed on the previously frozen sentinel lymph node and is negative for carcinoma in the remaining tissue. An e-cadherin immunohistochemical stain (with appropriately staining controls) on a dermatology sales representative section of the carcinoma of focus #1 demonstrates strong membranous positivity, supporting ductal origin. These findings, together with the gross examination, support the pathologic diagnosis. GROSS DESCRIPTION: Two specimens are received in two containers, labeled "Severe, Thelma." A. The specimen, labeled "Severe, Thelma, sentinel lymph node right axilla," is received fresh for frozen section diagnosis and consists of 2.9 x 2.5 x 0.8 cm fat with a 1.6 x 1.4 x 1.0 cm lymph node (LN). The lymph node is trisected and one third submitted for frozen section resubmitted as received in cassette A1. The remainder of the lymph node is submitted in cassettes A2. Only adipose tissue remains within the container. PERFORMING LABORATORY: The [facility], [address] [place] [address] (CLIA# [id number]). The technical component was performed by [employer] [facility], [address] [place] [address] (Music Department Chair: Trinh Zeng MD; CLIA# [id number]). Professional interpretation was performed by [facility], [address] [place] [address] (CLIA# [id number]). ADDITIONAL NOTES: Immunohistochemical studies were performed on this case with the appropriate positive controls that react as expected. This test was developed and its performance characteristics determined by [employer] [facility]. It has not been cleared or approved by the U.S. Food and Drug Administration. The FDA has determined that such clearance or approval is not necessary. This test is used for clinical purposes. It should not be regarded as investigational or for research. [employer] [facility] is certified under the Clinical Laboratory Improvement Amendments of 1988 (CLIA) as qualified to perform high complexity clinical laboratory testing. This assay has not been validated for specimens that have been decalcified. PERFORMING LABORATORY: The technical component was performed by [facility], [address] [place] [address], PATIENT NAME: THELMA BUTTS PATHOLOGY DATE OF : [birth year] REPORT #: [id number] PHYSICIAN: ERMA BEVERLY PCP: UMAIR PERSON MD REPORT IS CONFIDENTIAL AND NOT TO BE RELEASED WITHOUT AUTHORIZATION [facility] [address] [place], [place] [address] [place] [address] (Music Department Chair: Trinh Zeng MD; CLIA# [id number]). Professional interpretation was performed by [facility], [address] [place] [address] (Music Department Chair: Trinh Zeng MD; CLIA# [id number]). REASON FOR ADDENDUM: To add results of additional testing. ADDENDUM PATHOLOGIC DIAGNOSIS: B. Right breast and portion of axillary contents, invasive ductal carcinoma: - Estrogen receptor: Positive. - Greater than 95% of tumor cells with strong average intensity. - Progesterone receptor: Positive. - 15% of tumor cells with weak to moderate average intensity. - Ki-67 proliferation index: 7.2%. DDF:shayy ADDENDUM MICROSCOPIC EXAMINATION: Block: B8. The cold ischemia time is unknown. The fixative is 10% neutral buffered formalin. The length of fixation is at least 6 hours and no longer than 72 hours, meeting ASCO/CAP guidelines. Estrogen receptor clone SP1 and progesterone receptor clone 1E2 by [employer] [place], [place]. Detection: HRP Polymer Detection on the Osborn Immunostainer with appropriate controls. Nuclear immunoreactivity of 1% or greater is considered positive by ASCO/CAP guidelines. Internal control cells for ER are positive. Internal control cells for [place] are positive. A Ki-67 proliferation index is performed, and 500 cells are counted. DDF:[facility] Diagnostician: Nighat Day MD Pathologist Diagnostician: Gilbert Proctor DO Pathologist Electronically Signed 10/15/2020 Copies: ~ PATIENT NAME: THELMA BUTTS PATHOLOGY DATE OF : [birth year] REPORT #: [id number] PHYSICIAN: ERMA PATHOLOGY PCP: UMAIR PERSON MD REPORT IS CONFIDENTIAL AND NOT TO BE RELEASED WITHOUT AUTHORIZATION
== END 2020-10-09 14:54 | disposition home or self-care (01) ==
LOC: DS 07:05 → MS 11:41 → DS 11:42 → MS 11:42
PROVIDERS: ADMIT Surgery; ATTEND Surgery
PROC: 0HBT0ZZ Excision of Right Breast, Open Approach (ICD-10-PCS; principal; 2020-10-08 09:00)
PROC: 07B50ZX Excision of Right Axillary Lymphatic, Open Approach, Diagnostic (ICD-10-PCS; 2020-10-08 09:00)
PROC: 3E0W3HZ Introduction of Radioactive Substance into Lymphatics, Percutaneous Approach (ICD-10-PCS; 2020-10-08 09:00)
DX: C50.911 Malignant neoplasm of unspecified site of right female breast (principal); H81.13 Benign paroxysmal vertigo, bilateral; I10 Essential (primary) hypertension
CPT/HCPCS: 00404; 36415; 85025; 88307; 88341; 88342; 88360; 93005; 93010; 96372; 96374; G0378; J0690; J1100; J1644; J1885; J2001; J2405; J2704; J3010; J7121; Q9968

== ENCOUNTER 2021-10-13 05:40 | Day surgery (SDC) | payer MEDICARE, BC ==
[~2021-10-13] VITALS: Ht 167.6 cm; Wt 87.0 kg
[~2021-10-13 05:40] MED LIST changes: +ACETAMINOPHEN500 MG PO; +CEPHALEXIN250 M1 PO; +I-CAPS WITH LU1 EACH PO
--- NOTE | 2021-10-14 17:52 | OR ---
[facility] [address] [facility] [place], [place] [address] Signed DATE OF OPERATION: 10/13/2021 SURGEON: Elinor Hart MD PREOPERATIVE DIAGNOSIS: 1.5 cm bladder lesion. POSTOPERATIVE DIAGNOSES: 1.5 cm bladder lesion, located on the superior aspect of the right lateral wall of the bladder, intermittent supraventricular tachycardia. NAMES OF PROCEDURES: 1. Diagnostic cystoscopy. 2. Transurethral resection of bladder tumor-small. 3. Intravesical instillation of mitomycin chemotherapy. ANESTHESIA: General. ESTIMATED BLOOD LOSS: Minimal. COMPLICATIONS: None. SPECIMENS: Two 3 mm pieces of tissue obtained from the area of suspicion sent to pathology for evaluation. DRAINS: A 20-Swedish two-way Collier catheter, capped and secured to the patient's abdomen. INDICATIONS FOR PROCEDURE: Ms. Fishman is an 89-year-old female who presents today to undergo cystoscopy with transurethral resection of a small bladder lesion noted on recent diagnostic cystoscopy. The patient noted to anesthesia that she had been experiencing dizziness and diaphoresis intermittently on occasion. When she was hooked up to the monitor, once she was asleep, she experienced a 10-second run of supraventricular tachycardia. I was notified and the decision was made to proceed with the procedure which she tolerated well without any complication. Electronically Signed By: ELINOR HART MD 10/14/21 1752 PATIENT NAME: THELMA FISHMAN OPERATIVE REPORT DATE OF : [birth year] REPORT #: [id number] PHYSICIAN: ELINOR HART MD PCP: SANTI KAUR MD REPORT IS CONFIDENTIAL AND NOT TO BE RELEASED WITHOUT AUTHORIZATION [facility] [address] [place], [place] [address] Signed OPERATIVE FINDINGS: 1. On cystoscopy, there is 1 cm plaque of papillary appearing lesions located on the superior aspect of the right lateral wall of the bladder. This lesion is well delineated. The entire lesion was resected using a bipolar resectoscope and will be sent to the lab for pathology. 2. After the lesion was resected, I re-evaluated the entire surface of the bladder and did not appreciate any other abnormal lesions within the bladder. 3. After the base of the lesion was cauterized appropriately, 20 mL of mitomycin (40 mg) was instilled into the patient's bladder via a 20-Swedish two way Collier catheter. The catheter was then capped and then secured to her abdomen. Total dwell time of mitomycin today will be 80 minutes. DESCRIPTION OF PROCEDURE: After informed consent was obtained, the patient was taken back to the operating room. She was transferred from the [facility] to the operating room table, where general anesthesia was induced. It was at this time that the 10 second run of supraventricular tachycardia was noted. After a discussion of the risks and benefits of procedure with Anesthesia, the decision was made to proceed with the TURBT. She was placed in dorsal lithotomy position and the genitalia prepped and draped in a standard sterile fashion. Using a 30-degree lens on a 22.5-Swedish introducer, rigid cystoscope was inserted through urethra and into her bladder under direct visualization. Panendoscopic views of the bladder were then obtained. Please see the above findings. I then turned my attention to the lesion in question. I removed the cystoscope and inserted a resectoscope with the help of a visual obturator. I then resected this 1 cm lesion from the superior right lateral wall of the bladder. It was resected in toto. The two small pieces of tissue associated with the lesion were sent to pathology for evaluation. I then cauterized the base of the biopsied area. After taking another quick look around the bladder, I drained the patient's bladder and removed the cystoscope. A 20-Swedish two-way Collier catheter was inserted into the patient's bladder and the balloon was filled with 10 mL of water. Then, 40 mg in 20 mL of mitomycin was then instilled into the patient's bladder via the catheter. The catheter was then capped and secured to her abdomen. The procedure was then terminated. She tolerated the procedure well without any complication. However, she did have a couple of small runs of SVT towards the end of procedure, however, she did remain widely stable otherwise. DISPOSITION: I discussed the details of today's procedure with the patient's daughter and answered all of her questions. I reassured the patient's daughter today that the lesion did not seem as abnormal as it did on initial cystoscopy, however, it still needed to be removed. We will contact the patient in approximately two weeks to discuss her pathology results. She will not have to go home with a Collier catheter today. However, Electronically Signed By: ELINOR HART MD 10/14/21 6023 PATIENT NAME: THELMA FISHMAN OPERATIVE REPORT DATE OF : [birth year] REPORT #: [id number] PHYSICIAN: ELINOR HART MD PCP: SANTI KAUR MD REPORT IS CONFIDENTIAL AND NOT TO BE RELEASED WITHOUT AUTHORIZATION [address] [address] Signed she will need to complete her intravesical mitomycin therapy and void on her own before going home. She will be sent home today with cephalexin 750 mg p.o. b.i.d. for a total of 5 days. With respect to her undiagnosed SVT, the nurse plate sensitizer and I spoke in detail to the patient's daughter about her potential diagnosis and that she needs to see a assistant producer as soon as possible. In the interim, she can contact her primary care doctor, Dr. Santi Kaur for more immediate evaluation of her symptoms. The patient's daughter verbalized understanding of these directions today and she plans to call Dr. Kaur's office right now. MD MOE Freed/DEWAYNEL /[id number] Copies: ~ Electronically Signed By: ELINOR HART MD 10/14/21 1752 PATIENT NAME: THELMA FISHMAN OPERATIVE REPORT DATE OF : [birth year] REPORT #: [id number] PHYSICIAN: ELINOR HART MD PCP: SANTI KAUR MD REPORT IS CONFIDENTIAL AND NOT TO BE RELEASED WITHOUT AUTHORIZATION
--- NOTE | 2021-10-17 16:38 | PATH ---
[facility] [address] [facility] [place], [place] [address] Signed SPECIMEN(S): A BLADDER LESION SPECIMEN SOURCE: A. BLADDER LESION CLINICAL HISTORY: Bladder mass. 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 COMMENT: The cystoscopy note was reviewed. Sections demonstrate a papillary lesion lined by bland, cuboidal cells. The lamina propria is edematous with chronic inflammation. No tubules or urothelium is identified. The cuboidal cells are positive for PAX8, but negative for p63. The case will be sent for consultation and the results reported in an addendum. NAL:cml:C2NR MICROSCOPIC EXAMINATION: Histologic sections of all submitted blocks are examined by light microscopy. These findings, together with the gross examination, support the pathologic diagnosis. Sections demonstrate a papillary proliferation lined by bland cuboidal cells. No tubule formation is seen. The lamina propria is involved by chronic lymphoplasmacytic inflammation and eosinophils. Immunohistochemical stains (with appropriately staining controls) were performed. The lesional cells are positive for PAX8 but negative for p63, PSA, and P504S. 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 GROSS DESCRIPTION: The specimen, labeled "GS, A," and designated on the requisition "bladder lesion," is received in formalin and consists of two fragments of red-brown soft tissue (0.4 cm in greatest dimension). The specimen is submitted entirely in cassette (A1). AC (under the direct supervision of a pathologist) The Gross Description was prepared using a voice recognition system. The report was reviewed for accuracy; however, sound-alike word errors, addition and/or deletions may occur. If there is any PATIENT NAME: THELMA BUTTS PATHOLOGY DATE OF : [birth year] REPORT #: [id number] PHYSICIAN: ERMA PATHOLOGY PCP: MARK KAUR MD REPORT IS CONFIDENTIAL AND NOT TO BE RELEASED WITHOUT AUTHORIZATION [facility] [address] [place] [address] Signed question about this report, please contact Client Services. ADDITIONAL NOTES: Immunohistochemical and/or in situ hybridization studies were performed on this case with the appropriate positive controls that react as expected. This test was developed and its performance characteristics determined by [facility]. It has not been cleared or approved by the U.S. Food and Drug Administration. The FDA has determined that such clearance or approval is not necessary. This test is used for clinical purposes. It should not be regarded as investigational or for research. [facility] is certified under the Clinical Laboratory Improvement Amendments of 1988 (CLIA) as qualified to perform high complexity clinical laboratory testing. This assay has not been validated for specimens that have been decalcified. The technical component was performed by [facility], [address] [place] [address] (Bilingual School Psychologist: Trinh Zeng MD; CLIA# [id number]). [facility], [address] [address] (CLIA# [id number]). PERFORMING LABORATORY: The technical component was performed by [facility], [address] [place] [address] (Bilingual School Psychologist: Trinh Zeng MD; CLIA# [id number]). professional interpretation was performed by [facility], [facility], [address] [place] [address] (IA# [id number]). Diagnostician: Nighat Day MD Pathologist Electronically Signed 10/17/2021 Copies: ~ PATIENT NAME: THELMA BUTTS PATHOLOGY DATE OF : [birth year] REPORT #: [id number] PHYSICIAN: ERMA PATHOLOGY PCP: MARK KAUR MD REPORT IS CONFIDENTIAL AND NOT TO BE RELEASED WITHOUT AUTHORIZATION
== END 2021-10-13 10:55 | disposition home or self-care (01) ==
LOC: DS 05:40
PROVIDERS: ATTEND Urology
PROC: 0TBB8ZX Excision of Bladder, Via Natural or Artificial Opening Endoscopic, Diagnostic (ICD-10-PCS; principal; 2021-10-13 06:45)
DX: N32.89 Other specified disorders of bladder (principal); N39.0 Urinary tract infection, site not specified; I12.9 Hypertensive chronic kidney disease with stage 1 through stage 4 chronic kidney disease, or unspecified chronic kidney disease; N18.30 Chronic kidney disease, stage 3 unspecified; Z88.2 Allergy status to sulfonamides
CPT/HCPCS: 88305; 88341; 88342; J0690; J2001; J2370; J2405; J2704; J3010; J7121; J9280